=== PATIENT | male | born 1960 | race Caucasian/White ===

== ENCOUNTER 2020-06-19 10:45 | Outpatient (CLI) | payer MEDICAID, SELFPAY ==
--- NOTE | 2020-06-19 | US_ITS ---
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 COMPARISON: 04/13/2018 Liver: 16.0 cm in length. Liver is top normal size. Coarse echotexture. Surface of the liver appears irregular nodule. No bile duct dilatation or mass. Gallbladder: Single stone in the gallbladder lumen. No pericholecystic fluid or gallbladder wall thic kening. CBD: 0.3 cm Pancreas: Tail is not visualized. The remaining pancreas is negative. Right kidney: 10.2 cm in length. Normal size and echogenicity. No hydronephrosis or mass. Aorta and IVC: Poorly visualized aorta. No ascites. US/US liver [id number] IMPRESSION: 1. Cirrhotic liver with no mass or bile duct dilatation. 2. Cholelithiasis without acute cholecystitis.
== END 2020-06-19 10:46 | disposition home or self-care (01) ==
LOC: RADOUTREAD 11:37
PROVIDERS: Visit Provider Nurse Practitioner Family
DX: K70.30 Alcoholic cirrhosis of liver without ascites (principal); K80.20 Calculus of gallbladder without cholecystitis without obstruction
CPT/HCPCS: 76705

== ENCOUNTER 2020-07-11 07:06 | Outpatient (CLI) | payer MEDICARE, MEDICAID, SELFPAY ==
--- NOTE | 2020-07-11 07:15 | USCV_ITS ---
Nicholas Vance Age: 60 Gender: M : 1960 Exam Date: 07/11/2020 07:29 Ordering Phys: Benjamin Mock M.D ([email or web address]) Technologist: Lyndsay Dodge [place]am [place] [facility] [place]: CP BP: 146 / 81 HR: 94 Rhythm: Sinus Technical Quality: Fair MEASUREMENTS (Male / Female) Normal Values 2D ECHO LV Diastolic Diameter PLAX 3.9 cm 4.2 - 5.9 / 3.9 - 5.3 cm LV Systolic Diameter PLAX 2.7 cm IVS Diastolic Thickness 1.5 cm 0.6 - 1.0 / 0.6 - 0.9 cm IVS Systolic Thickness 1.9 cm LVPW Diastolic Thickness 2.1 cm 0.6 - 1.0 / 0.6 - 0.9 cm LVPW Systolic Thickness 1.8 cm LVOT Diameter 2.1 cm LV Ejection Fraction 2D Teich 57.0 % LV Ejection Fraction MOD 2C 56.3 % LV Ejection Fraction 2C AL 59.4 % LA Diameter 3.6 cm LA Width 3.0 cm LA Height 4.2 cm RA Width 3.3 cm RA Height 3.9 cm Aorta at Sinotubular Diameter 3.5 cm M-MODE LV Diastolic Diameter MM 6.6 cm 4.2 - 5.9 / 3.9 - 5.3 cm LV Systolic Diameter MM 4.1 cm LV Ejection Fraction MM Teich 66.7 % IVS Diastolic Thickness MM 0.9 cm 0.6 - 1.0 / 0.6 - 0.9 cm IVS Systolic Thickness MM 1.8 cm LVPW Diastolic Thickness MM 1.6 cm 0.6 - 1.0 / 0.6 - 0.9 cm LVPW Systolic Thickness MM 1.9 cm Aortic Annulus Diameter 4.2 cm LA Ao Ratio MM 0.8 MV E Point Septal Separation 0.7 cm DOPPLER AV Peak Velocity 151.0 cm/s LVOT Peak Velocity 87.0 cm/s AV Area Cont Eq pk 1.9 cm squared MV Area PHT 4.6 cm squared Mitral E to A Ratio 0.5 MV E' Velocity 33.2 cm/s Mitral E to MV E' Ratio 9.0 Mitral E to LV E' Lateral Ratio 8.9 Mitral E to LV E' Septal Ratio 9.4 TR Peak Velocity 111.7 cm/s TR Peak Gradient 5.0 mmHg Right Atrial Pressure 3.0 mmHg Pulmonary Artery Systolic Pressu 8.0 mmHg PV Peak Velocity 113.0 cm/s RV Acceleration Time 0.1 s RV Ejection Time 0.2 s RV AcT/ET 0.6 FINDINGS Left Ventricle Normal left ventricular size. LV systolic function is borderline reduced with EF of 45-50%. There is mild hypokinesis of anteroseptal and inferoseptal kirk. Grade 1 diastolic dysfunction is noted Right Ventricle The right ventricle is normal in size and function. Right Atrium The right atrium is normal in size. Left Atrium The left atrium is normal in size. Mitral Valve Structurally normal mitral valve without significant stenosis or prolapse. There is no mitral regurgitation. Aortic Valve Structurally normal aortic valve without significant sclerosis or stenosis. There is mild aortic regurgitation. Tricuspid Valve Structurally normal tricuspid valve without significant stenosis or regurgitation. Insufficient TR jet to calculate RVSP Pulmonic Valve Structurally normal pulmonic valve without significant stenosis. There is no pulmonic regurgitation. Pericardium Normal pericardium without effusion. Aorta Aortic root is dilated CONCLUSIONS LV systolic function is mildly reduced with EF of 45-50%. Above mentioned regional wall motion abnormalities Grade 1 diastolic dysfunction Mild aortic regurgitation Aortic root is dilated No comparison studies are available Benjamin Mock MD (Electronically Signed) Final Date: 16 July 2020 13:20 S
== END 2020-07-11 07:07 | disposition home or self-care (01) ==
LOC: US 07:09
PROVIDERS: PCP Nurse Practitioner Family; Visit Provider Internal Medicine
DX: R07.9 Chest pain, unspecified (principal); I35.1 Nonrheumatic aortic (valve) insufficiency
CPT/HCPCS: 93306

== ENCOUNTER 2020-08-09 08:04 | Outpatient (CLI) | payer MEDICARE, MEDICAID, SELFPAY ==
[2020-08-09 08:36] VITALS: BMI 28.1
--- NOTE | 2020-08-09 08:37 | ECG_ITS ---
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 Interpretive Statements NAME OF STUDY: LEXISCAN SESTAMIBI STRESS TEST INDICATION: Dyspnea on exertion PROCEDURE: At the baseline, the blood pressure was 144/106 mmHg, oxygen saturation 94% with a heart rate of 72 bpm. The electrocardiogram showed normal sinus rhythm, normal axis with possible old anteroseptal infarct. The Lexiscan was infused over a period of 20 seconds. A total of 0.4 milligrams of Lexiscan was infused. The stress phase was continued for a total of 5 minutes. Heart rate at the end of the stress phase was 107 bpm, oxygen saturation 87% with a blood pressure 111/90 mmHg. The EKG at the peak infusion revealed sinus tachycardia with no significant ST-T wave changes. The study was terminated due to protocol completion. Sestamibi was injected 20 seconds after the Lexiscan infusion. Blood pressure at the end of the recovery phase was 125/90 mmHg, oxygen saturation 91% with a heart rate of 92 beats per minute. CONCLUSION: 1. No significant EKG changes with the LexiScan infusion. 2. No LexiScan induced chest pain or cardiac arrhythmia. 3. Normal blood pressure and heart rate response. 4. Sestamibi/sestamibi perfusion scan pending; see separate report. Electronically Signed On 08-16-2020 12:22:10 CDT by Michelle Perez M.D. [id number]
--- NOTE | 2020-08-09 08:38 | NMCV_ITS ---
NM reji perf SPECT r/s* [id number] Nicholas Vance Age: 60 Gender: M : 1960 Exam Date: 08/09/2020 08:38 Ordering Phys: Benjamin Mock M.D ([email or web address]) Technologist: QUEENIE Kahn Exam Location: [facility] Indications: DYSPNEA STRESS TEST Please see separate stress test report in [facility] for full findings IMAGE PROTOCOL Rest/Stress 1 Lexiscan Day Radiopharmaceutical Dose (mCi) Administration Site Administered by Rest: Tc-99m 10.8 IV QUEENIE Alcala Sestamibi Stress:Tc-99m 32.7 IV QUEENIE Alcala Sestamibi Rest: 09-Aug-2020 60 Discovery 630 Stress: 09-Aug-2020 30 Discovery 630 0.4mg Lexiscan. Images obtained in supine and prone position. SPECT RESULTS Technical Quality: Excellent Raw Data Analysis: Normal Image Corrections: No attenuation or motion correction applied Summed Stress Score: 17 Summed Rest Score: 12 Summed Difference Score: 5 PERFUSION FINDINGS Medium size perfusion abnormality of moderate severity of mid to apical anterior, mid to apical anteroseptal, apical lateral and apical kirk on rest images with subtle reversibility in mid anterior and apical kirk on stress images. FUNCTIONAL RESULTS (calculated via Gated SPECT) Stress Image LV EF (%): 41 Stress EDV (mL):139 TID: 1.1 Stress ESV (mL):82 FUNCTIONAL FINDINGS: The left ventricle is normal in size. Transient Ischemia Dilatation of 1.1. There is mildly reduced left ventricular systolic function. The left ventricular ejection fraction is mildly reduced with a value of 41%. There is hypokinesis of mid to apical anterior, mid to apical septal and apical kirk. IMPRESSIONS 1. Medium size perfusion abnormality of moderate severity of mid to apical anterior, mid to apical anteroseptal, apical lateral and apical kirk on rest images with subtle reversibility in mid anterior and apical kirk on stress images. 2. This is suggestive of old myocardial infarction or scarring in left anterior descending artery territory with mild lexie-infarct ischemia. 3. The left ventricular ejection fraction is mildly reduced with a value of 41%. 4. There is hypokinesis of mid to apical anterior, mid to apical septal and apical kirk. 5. The perfusion pattern is consistent with an ischemic cardiomyopathy. Michelle Perez MD (Electronically Signed) Final Date: 14 August 2020 13:42 S
[2020-08-09] MEDS: regadenoson 0.4 Mg/5 ml Syringe IVP (10:50)
[2020-08-09 11:13] VITALS: BP 125/90; PULSE 92
== END 2020-08-09 08:05 | disposition home or self-care (01) ==
LOC: RAD 08:12 → CDL 08:34
PROVIDERS: PCP Nurse Practitioner Family; Visit Provider Internal Medicine
DX: R06.00 Dyspnea, unspecified (principal)
CPT/HCPCS: 78452; 93017; A9500; J2785

== ENCOUNTER 2021-05-03 21:04 | Emergency (ER) | payer MEDICARE, MEDICAID, SELFPAY ==
[2021-05-03 21:28] VITALS: BP 140/95; PULSE 95; RESP 18; TEMP 36.3; O2SAT 97; BMI 27.3
--- NOTE | 2021-05-03 21:31 | W.ED.GENADLT ---
HPI - General Adult General: Chief complaint: Headache Stated complaint: HEADACHE, COLD Time Seen by Provider: 05/03/21 21:23 Source: patient Mode of arrival: ambulatory Limitations: no limitations History of Present Illness: HPI narrative: 60-year-old male states that he had ran out of his lisinopril over the last few days his blood pressure been running a little high tonight he had a very mild headache. He states he also went out in his house and he was getting cold. He denies severe headache states it is a 3 out of 10. Denies being the worst headache of life denies any sudden onset denies any chest pain denies any worsening improving factors denies any fever or dyspnea. Associated symptoms: Deny chest pain, dyspnea, headache(s), nausea, rash or vomiting Review of Systems Const: Denies: fever(s), chills, body aches or change in appetite Eyes: Denies: blurry vision or eye discomfort ENMT: Denies: throat pain or dental pain Card: Denies: chest pain Resp: Denies: dyspnea GI: Denies: abdominal pain, nausea, vomiting or diarrhea : Denies: dysuria Musc: Denies: neck pain or back pain Skin/Breast: Denies: rash Neuro: Denies: headache(s) Psych: Denies: depression Flo/Lymph: Denies: easy bruising All/Imm: Denies: urticaria PFSH ED PFSH: Medical History HTN (hypertension) Social History Smoking and tobacco status: current every day smoker cigarettes Packs smoked per day: 1.5 Alcohol intake: current Alcohol intake frequency: 3 or more drinks per day Alcohol type: beer Physical Exam Const: COMMON NORMALS: no acute distress, patient oriented x3 and healthy appearing HENMT: COMMON NORMALS: normocephalic and atraumatic HEAD & SCALP: normocephalic and atraumatic Eye: COMMON NORMALS: Equal, round and reactive pupils present and EOMs intact bilaterally PUPIL: Yes Equal, round and reactive pupils present Neck/C-Spine: COMMON NORMALS: full ROM and supple Chest: COMMONS NORMALS: normal inspection of the chest and normal palpation of entire chest wall Resp: COMMON NORMALS: normal respiratory effort, No retractions, No use of accessory muscles and clear to auscultation bilaterally AUSCULTATION: clear to auscultation bilaterally Cardio: COMMON NORMALS: regular rate, regular rhythm and No murmurs present (Cardio) RATE: regular rate RHYTHM: regular rhythm GI: COMMON NORMALS: Normal to inspection, nondistended, normoactive bowel sounds present, Soft to palpation, non-tender and no masses PALPATION: Yes Soft to palpation Extremity: COMMON NORMALS: normal to inspection and full ROM Neuro: COMMON NORMALS: patient oriented x3, moves all extremities and no focal motor deficits Psych: COMMON NORMALS: mental status grossly normal, Normal thought process present and cooperative THOUGHT PROCESS: Normal thought process present Skin: COMMON NORMALS: no rashes or lesions noted and no wounds GENERAL SKIN EXAM: no rashes or lesions noted Course Vital Signs: Vital signs: Vital Signs Temperature 97.4 F L 05/03/21 21:28 Pulse Rate 95 05/03/21 21:28 Respiratory Rate 18 05/03/21 21:28 Blood Pressure 140/95 05/03/21 21:28 Pulse Oximetry 97 05/03/21 21:28 MDM - General Adult MDM Narrative: Medical decision making narrative: Patient presents with hypertension. Patient is well-appearing here we will refill his lisinopril that he is out he has no signs of subarachnoid hemorrhage or meningitis he is stable for discharge at this time return if worsening. Discharge Plan Discharge Patient Disposition: Home Clinical Impression: Hypertension Qualifiers: Hypertension type: unspecified Qualified Code(s): I10 - Essential (primary) hypertension Condition: Stable Prescriptions: Continued lisinopril 10 mg tablet 20 mg PO DAILY Qty: 60 RF: 0 Discharge Orders: Discharge ED (Routine); Ordered 05/03/21 Ordered By: Fredi Flores Referrals: Anh Melvin FNP [Primary Care Provider] - Discharge Diet: Advance as tolerated Discharge Activity: Resume usual activity Patient Instructions: Hypertension (ED) Coding Level of Care Code ED Postdoctoral Research Fellow for Chg Fwd Exam Comprehensive
== END 2021-05-03 21:46 | disposition home or self-care (01) ==
PROVIDERS: Emergency Provider Emergency Medicine; PCP Nurse Practitioner Family
DX: I10 Essential (primary) hypertension (principal); F17.210 Nicotine dependence, cigarettes, uncomplicated
CPT/HCPCS: 99283

== ENCOUNTER 2023-03-04 12:07 | Outpatient (CLI) | payer MEDICARE, MEDICAID, SELFPAY ==
--- NOTE | 2023-03-04 12:14 | CT_ITS ---
WS: [id number] LDCT LUNG CANCER SCREENING HISTORY: NICOTINE DEPENDENCE,CIGARETTES TECHNIQUE: Axial imaging performed from the apices to 1 cm below the costophrenic angles. Coronal and sagittal reformats are submitted with axial MIP series. All CT scans at [facility] use at least one of these dose optimization techniques: automated exposure control; mA and/or kV adjustment per patient size (includes targeted exams where dose is matched to clinical indication); or iterativ e reconstruction. DLP: 58.90 mGy.cm DIvol: Mean CTDIvol: 1.30 (mGy) COMPARISON: None available. Diagnostic quality: Satisfactory Lungs: Emphysema. 7 mm subpleural nodule LEFT upper lobe. No additional mass or nodule. No pneumonia. LEFT lower lobe bronchiectasis. No endobronchial lesions. Heart: Moderate cardiomegaly. Extensive coronary artery calcification.. Other findings: Moderate atherosclerosis aorta. Small mediastinal and hilar lymph nodes. Normal sized pulmonary artery. Cirrhotic liver. No adrenal mass. Increase in thoracic kyphosis. IMPRESSION: CT/CT lung screening [id number] LUNG-RADS: 3S-Probably Benign with Significant Findings FOLLOW UP: 6 Month LDCT OTHER FINDINGS (S MODIFIER): Extensive coronary artery calcifications. LEFT low er lobe bronchiectasis. Cirrhosis.
== END 2023-03-04 12:08 | disposition home or self-care (01) ==
PROVIDERS: PCP Nurse Practitioner Family; Visit Provider Nurse Practitioner Family
DX: Z12.2 Encounter for screening for malignant neoplasm of respiratory organs (principal); F17.210 Nicotine dependence, cigarettes, uncomplicated
CPT/HCPCS: 71271

== ENCOUNTER 2024-02-04 12:43 | Outpatient (CLI) | payer MEDICARE, MEDICAID, SELFPAY ==
--- NOTE | 2024-02-04 12:49 | CTR_ITS ---
PROCEDURE INFORMATION: Exam: CT Chest With Contrast; Diagnostic Exam date and time: 02/04/2024 1:14 PM Age: 63 years old Clinical indication: Condition or disease; Lung condition and disease; Pulmonary nodule, solitary; Additional info: Lung nodule TECHNIQUE: Imaging protocol: Diagnostic computed tomography of the chest with contrast. Radiation optimization: All CT scans at this facility use at least one of these dose optimization techniques: automated exposure control; mA and/or kV adjustment per patient size (includes targeted exams where dose is matched to clinical indication); or iterative reconstruction. Contrast material: OMNI 350; Contrast volume: 100 ml; Contrast route: INTRAVENOUS (IV); COMPARISON: CT lung screening [id number] 03/04/2023 12:44 PM RADIATION DOSE METRICS: Total DLP (mGy-cm): 339.78 FINDINGS: Lungs: Unremarkable. No consolidation. No masses. Pleural spaces: Unremarkable. No pneumothorax. No pleural effusion. Heart: Mild cardiomegaly is noted. Lymph nodes: Unremarkable. No enlarged lymph nodes. Vasculature: Unremarkable. No aortic aneurysm. Liver: The liver demonstrates an irregular contour and parenchymal heterogeneity consistent with cirrhosis. I see no liver mass. Bones/joints: Unremarkable. No acute fracture. Soft tissues: Unremarkable. CT/CT chest w con* [id number] IMPRESSION: 1. The previously noted left upper lobe lung nodule has resolved since 03/04/2023 2. Mild cardiomegaly 3. Hepatic cirrhosis
[2024-02-04 13:32] LABS: Blood Urea Nitrogen 10 mg/dL (8-23)
[2024-02-04] MEDS: iohexol 350 mg/mL 500 mL Btl (per mL) IV (13:34)
== END 2024-02-04 12:44 | disposition home or self-care (01) ==
LOC: RAD 12:44
PROVIDERS: Radiology Diagnostic Radiology; PCP Nurse Practitioner Family; Visit Provider Nurse Practitioner Family
DX: R91.1 Solitary pulmonary nodule (principal); I51.7 Cardiomegaly; K74.60 Unspecified cirrhosis of liver
CPT/HCPCS: 71260; 82565; 84520